=== PATIENT | female | born 1970 | race Two or more races ===

== ENCOUNTER 2018-01-23 09:35 | Emergency (ER) | payer MEDICAID ==
[~2018-01-23] VITALS: Ht 165.1 cm; Wt 66.2 kg
[2018-01-23 09:53] VITALS: BP 120/84
--- NOTE | 2018-01-23 10:04 | Emergency Room Report ---
History of Present Illness General Chief Complaint: Vaginal Source: Patient Present Illness HPI Patient presents with complaints of vaginal spotting and cramping Patient reports that she had a check with her [facility]IC[facility] physician last week Was told that she was 6 weeks on the ultrasound On Tuesday she began having spotting and cramping And today is a continued she presented to the ER Denies any vomiting denies any diarrhea Denies any chest pain or shortness of breath Patient is With her youngest child being 20 years old Allergies: Coded Allergies: No Known Allergies (Unverified , 01/23/18) Patient History Past Medical History: see triage record Pertinent Family History: none Now: Yes Reviewed Nursing Documentation: PMH: Agreed; PSxH: Agreed Nursing Documentation-PMH Past Medical History: No Stated History Review of Systems All Other Systems: negative except mentioned in HPI Physical Exam Vital Signs Date Time Temp Pulse Resp B/P (MAP) Pulse Ox O2 Delivery O2 Flow Rate FiO2 01/23/18 09:43 98.2 97 18 120/84 99 Room Air Sp02 EP Interpretation: reviewed, normal General Appearance: well appearing, no apparent distress Head: normocephalic, atraumatic Eyes: bilateral eye PERRL, bilateral eye EOMI ENT: hearing grossly normal, normal pharynx, TMs + canals normal, uvula midline Neck: full range of motion, supple, no meningismus, no bony tend Respiratory: lungs clear, normal breath sounds, no rhonchi, no respiratory distress, no retraction, no accessory muscle use Cardiovascular #1: normal peripheral pulses, regular rate, rhythm, no edema, no gallop, no JVD, no murmur Gastrointestinal: normal bowel sounds, non tender - Subjectively however complaints of cramping in lower mid abdomen, soft, no mass, no organomegaly, non -distended, no guarding, no hernia, no pulsatile mass, no rebound Genitourinary: no CVA tenderness Musculoskeletal: normal inspection Neurologic: oriented x3, responsive, feed adviser III-XII nml as tested, motor strength/ tone normal, sensory intact Psychiatric: mood/affect normal Skin: normal color, no rash, warm/dry, palpation normal Lymphatic: normal inspection, no adenopathy Medical Decision Making Diagnostic Impression: Primary Impression: Incomplete ER Course With the patient's history and examination, multiple differentials considered, including but not limited to , ectopic , ovarian torsion, gastritis, cholecystitis, pancreatitis, appendicitis Patient's ultrasound at this time does not reveal intrauterine Given that the patient was previously told she had visible also the order entry technician I spoke with did see significant amount of debris in the vault Beta Quant is at 5900 Patient's blood count is positive On repeat evaluation patient's abdominal discomfort is significantly improved Patient requires close [facility] PHYSICIAN specialty follow-up in the next one to 2 days Full rule out of ectopic cannot be made at this time with the information that I have in the lack of any obvious formal ultrasound from previous And therefore the need for close follow-up Labs Test 01/23/18 09:50 01/23/18 10:35 Urine HCG, Qualitative Positive (NEGATIVE) Human Chorionic Gonadotropin, Quant 5791 mIU/mL (1-6) CT/MRI/US Diagnostic Results CT/MRI/US Diagnostic Results : Impression pelvic ultrasoundIMPRESSION: Heterogeneous material within the endometrial canal. Retained products of conception not excluded. Correlate with dates and quantitative beta-hCG. No IUP identified. Normal appearance of both ovaries. Last Vital Signs Date Time Temp Pulse Resp B/P (MAP) Pulse Ox O2 Delivery O2 Flow Rate FiO2 01/23/18 09:43 98.2 97 18 120/84 99 Room Air Status: improved Disposition: HOME, SELF-CARE Condition: Improved Additional Instructions: Patient is provided with the discharge instructions notified to follow up with primary doctor in the next 2-3 days otherwise return to the er with any worsening symptoms. Please note that this report is being documented using [employer] technology. This can lead to erroneous entry secondary to incorrect interpretation by the dictating instrument. Jacob Gutierrez DO Jan 23, 2018 10:04
--- NOTE | 2018-01-23 11:56 | Diagnostic Imaging Report ---
Indication: Pelvic pain. Vaginal spotting. Positive test Technique: Grayscale and duplex Doppler imaging of the pelvis performed utilizing a transabdominal scan and endovaginal scan. Comparison: None Findings: The endometrium is not thickened. Within the endometrial canal there are heterogeneous mixed echogenicity foci with some shadowing. Findings likely represent blood with possible retained products of conception given the positive status. Correlate with dates and quantitative beta-hCG. There is no IUP, gestational sac or recognizable elements such as a yolk sac seen. Further evaluation by PATENT CLERK is recommended. Uterus measures approximately 13 x 7 x 7 cm. Both ovaries are seen show dopplerable blood flow. The right ovary is 2.4 x 2.3 x 1.8 cm. Left ovary is 2.8 x 2.0 x 1.9 cm. IMPRESSION: Heterogeneous material within the endometrial canal. Retained products of conception not excluded. Correlate with dates and quantitative beta-hCG. No IUP identified. Normal appearance of both ovaries.
[2018-01-23 14:48] VITALS: BP 120/84
== END 2018-01-23 13:00 | disposition home or self-care (01) ==
LOC: EMR 10:17
DX: O03.4 Incomplete spontaneous abortion without complication (principal)
CPT/HCPCS: 36415; 76801; 81025; 84702; 86900; 86901; 99284